=== PATIENT | female | born 1955 | race Caucasian/White ===

== ENCOUNTER → 2018-06-24 10:26 | Day surgery (SDC) | payer OTHER ==
[~2018-06-24 10:26] MED LIST: Buffered Lidocaine 1% SYRIN* 1 ML/SYRINGE INTRADERM ONE; Dexamethasone TAB* 4 MG ONE; Dexamethasone TAB* 4 MG PO ONE; DiMENhydriNATE IV* 50 MG/ML VIAL IV PUSH PRN; Famotidine IV* 10 MG/ML 2 ML (20 mg) IV ONE; Famotidine IV* 10 MG/ML 2 ML (20 mg) ONE; KETAMINE HCL* 50 MG/ML 10 ML VIAL ONE; Lactated Ringers 1000 ML Bag* 1,000 ML IV SCH; Midazolam* 1 MG/ML 5 ML VIAL (5 MG) ONE; Naloxone* 0.4 MG/ML 1 ML VIAL IV PRN; Ondansetron ODT TAB* 4 MG ONE; Ondansetron TAB* 4 MG PO ONE; PROCHLORPERAZINE INJ 5 MG/ML 2 ML VIAL IV PRN; Propofol* 500 MG/50 ML BTL ONE; fentaNYL* 50 MCG/ML 2 ML VIAL (100 MCG VIAL) IV PRN; fentaNYL* 50 MCG/ML 2 ML VIAL (100 MCG VIAL) ONE
[2018-06-24 15:12] VITALS: BP 136/63
--- NOTE | 2018-06-24 23:11 | PRO ---
CC: AUBREY Mcduffie * DATE OF PROCEDURE: 06/24/18 - [facility] REFERRING PROVIDER: AUBREY Mcduffie PROCEDURE: Colonoscopy. INDICATION: The patient with a history of a colon polyp in 2012. Repeat colonoscopy performed in March 2018 but prep was very poor. Presents today for repeat colonoscopy with an extended prep. MEDICATIONS GIVEN: Medications given by Anesthesia. The patient was previously difficult to sedate with moderate sedation. DESCRIPTION OF PROCEDURE: Full disclosure of risks was reviewed with the patient as detailed on the consent form. The patient was placed in the left lateral decubitus position and monitored with continuous pulse oximetry, capnography, interval blood pressure monitoring, and direct observation. After anorectal examination was performed, the pediatric colonoscope was inserted into the rectum and advanced to the level of the cecum. Complete views of the cecum were obtained including the medial wall between the IC valve and the appendiceal orifice. Photodocumentation of landmarks obtained. Quality of the prep was good. Careful inspection was made as the colonoscope was withdrawn. Retroflexion was performed in the rectum. Findings and interventions are described below. FINDINGS: Anorectal exam was unremarkable. Scope was inserted into the rectum and advanced to the level of the cecum. Once in the cecum, the terminal ileum was intubated x5 cm. Ileal mucosa was normal in appearance. Scope was then withdrawn back to the cecum and then throughout the length of the colon. Retroflexion was performed in the right colon. No polyps or masses. No diverticulosis. Retroflexion in the rectum revealed internal hemorrhoids. The scope was then withdrawn from the patient. The patient tolerated the procedure well and was recovered in the GI recovery area. IMPRESSION: 1. Complete colonoscopy to terminal ileum. 2. Internal hemorrhoids. FOLLOWUP: Repeat colonoscopy in 5 years with anesthesia and extended prep given history of polyp in 2012. [id number] #: [id number] MTDD
== END | disposition home or self-care (01) ==
LOC: OR 10:26
PROVIDERS: ATTEND Internal Medicine Gastroenterology
DX: K63.5 Polyp of colon (principal); K64.8 Other hemorrhoids; J45.909 Unspecified asthma, uncomplicated; K21.9 Gastro-esophageal reflux disease without esophagitis; M85.80 Other specified disorders of bone density and structure, unspecified site; F43.10 Post-traumatic stress disorder, unspecified; F32.9 Major depressive disorder, single episode, unspecified
CPT/HCPCS: A9270-GY; J2250; J2704; J3010; J8540